=== PATIENT | female | born 1965 | race American Indian/Alaskan Native ===

== ENCOUNTER 2017-09-12 00:54 | Emergency (ER) | payer OTHER, MEDICARE ==
[2017-09-12 01:12] VITALS: RESP 18
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
[2017-09-12 03:06] VITALS: BP 160/85; PULSE 84; TEMP 98.5
[2017-09-12 03:24] VITALS: O2SAT 99
--- NOTE | 2017-09-12 09:49 | RAD ---
PROCEDURE: Cervical Spine Radiographs. HISTORY: Pain. No history of recent/ related trauma provided COMPARISON: None. FINDINGS: BONES: Reversal of the anatomic lordosis with kyphosis. Degree: Mild DISC SPACES: C5-6 degenerative changes. This consists disc space narrowing and anterior osteophyte formation. SOFT TISSUES: Normal. No prevertebral soft tissue swelling. OTHER FINDINGS: None. IMPRESSION: No acute findings related to/accounting for the clinical presentation. Additional benign and/or incidental findings described above. Concordant results with the preliminary interpretation rendered by the emergency department physician procedure.
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
== END 2017-09-12 03:05 | disposition home or self-care (01) ==
LOC: C.ER 00:54
DX: S39.012A Strain of muscle, fascia and tendon of lower back, initial encounter (principal); V49.9XXA Car occupant (driver) (passenger) injured in unspecified traffic accident, initial encounter; I10 Essential (primary) hypertension